=== PATIENT | female | born 1940 | race Caucasian/White ===

== ENCOUNTER → 2017-05-19 | Outpatient (REF) | payer MEDICARE ==
[2017-05-19 15:22] LABS: MICROSCOPIC INDICATED? MAN YES (NO)
[2017-05-19 15:49] LABS: BACTERIA, URINE NONE SEEN; HYALINE CAST, URINE NONE SEEN /lpf (0-1); RBC, URINE NONE SEEN /hpf (0-3); SQUAMOUS EPITHELIAL CELL URINE SMALL AMOUNT /hpf (SMALL AMT); WBC, URINE NONE SEEN /hpf (0-3)
[2017-05-19 15:50] LABS: MICROSCOPIC EXAM PERFORMED
== END ==
LOC: M SMT 13:11
PROVIDERS: ATTEND Nurse Practitioner Women's Health
DX: R39.89 Other symptoms and signs involving the genitourinary system (principal)
CPT/HCPCS: 81000; 87086; G0463

== ENCOUNTER → 2018-02-22 | Outpatient (REF) | payer MEDICARE ==
[2018-02-22 13:23] LABS: APPEARANCE, URINE CLEAR (CLEAR); BACTERIA, URINE AUTO NEGATIVE (NEGATIVE); BILIRUBIN, URINE AUTO NEGATIVE (NEGATIVE); BLOOD, URINE BLOOD NEGATIVE (NEGATIVE); COLOR, URINE YELLOW (YELLOW); GLUCOSE, URINE (UA) AUTO NEGATIVE (NEGATIVE); KETONE, URINE AUTO NEGATIVE (NEGATIVE); LEUKOCYTE ESTERASE, URINE AUTO 1+ (NEGATIVE); MUCUS, URINE SMALL (NEGATIVE); NITRITE, URINE AUTO NEGATIVE (NEGATIVE); PROTEIN, URINE AUTO NEGATIVE (NEGATIVE); RBC, URINE AUTO 0 /HPF (0-3); SPECIFIC GRAVITY URINE AUTO 1.013 (1.002-1.035); SQUAMOUS EPITHELIAL CELL UR AU 1 /HPF (0-6); UROBILINOGEN, URINE AUTO 0.2 mg/dL (0.0-2.0); WBC, URINE AUTO 2 /HPF (0-3)
== END ==
LOC: M SMT 12:55
DX: R35.0 Frequency of micturition (principal)
CPT/HCPCS: 81001

== ENCOUNTER → 2018-03-31 | Outpatient (CLI) | payer MEDICARE ==
[2018-03-31 09:54] LABS: HEMATOCRIT 38.1 % (36.0-47.0); HEMOGLOBIN 12.8 g/dl (12.0-15.5); MEAN CORPUSCULAR HEMOGLOBIN 29.4 pg (27.0-33.0); MEAN CORPUSCULAR HGB CONC 33.6 g/dl (32.0-36.5); MEAN CORPUSCULAR VOLUME 87.6 fl (80.0-96.0); PLATELET COUNT, AUTOMATED 194 10^3/uL (150-450); RED BLOOD COUNT 4.35 10^6/uL (4.00-5.40); RED CELL DISTRIBUTION WIDTH 13.2 % (11.5-14.5); WHITE BLOOD COUNT 5.8 10^3/uL (4.0-10.0)
[2018-03-31 10:05] LABS: INR 0.93; PROTHROMBIN TIME 12.5 SECONDS (12.1-14.4)
[2018-03-31 10:16] LABS: ERYTHROCYTE SEDIMENTATION RATE 10 mm/hr (0-30)
[2018-03-31 10:20] LABS: ALBUMIN 3.6 GM/DL (3.2-5.2); ALBUMIN/GLOBULIN RATIO 1.16 (1.00-1.93); ALKALINE PHOSPHATASE 69 U/L (45-117); ALT/SGPT 20 U/L (12-78); ANION GAP 7 MEQ/L (8-16); AST/SGOT 15 U/L (7-37); BILIRUBIN,TOTAL 0.5 MG/DL (0.2-1.0); BLOOD UREA NITROGEN 15 MG/DL (7-18); CALCIUM LEVEL 9.4 MG/DL (8.8-10.2); CARBON DIOXIDE LEVEL 29 MEQ/L (21-32); CHLORIDE LEVEL 103 MEQ/L (98-107); CREATININE FOR GFR 0.78 MG/DL (0.55-1.30); GLOMERULAR FILTRATION RATE > 60.0 (>32); GLUCOSE, FASTING 91 MG/DL (70-100); SODIUM LEVEL 139 MEQ/L (136-145); TOTAL PROTEIN 6.7 GM/DL (6.4-8.2)
== END ==
LOC: M LAB 09:12
DX: Z01.818 Encounter for other preprocedural examination (principal); M16.11 Unilateral primary osteoarthritis, right hip; J45.909 Unspecified asthma, uncomplicated; J44.9 Chronic obstructive pulmonary disease, unspecified; I10 Essential (primary) hypertension; E78.00 Pure hypercholesterolemia, unspecified; K21.9 Gastro-esophageal reflux disease without esophagitis; Z86.73 Personal history of transient ischemic attack (TIA), and cerebral infarction without residual deficits; R94.31 Abnormal electrocardiogram [ECG] [EKG]
CPT/HCPCS: 71046

== ENCOUNTER 2018-04-14 05:39 | Inpatient (IN) | payer MEDICARE ==
[2018-04-14] MEDS ORDERED: ONDANSETRON 4MG/2ML VIAL (J2405) As Ordered (07:15)
[2018-04-14] MEDS ORDERED: fentaNYL 100 MCG/2 ML INJECTION (J3010) As Ordered (07:15)
[2018-04-14] MEDS: CLINDAMYCIN 900 MG in APPROPRIATE DILUENT 1 EA IV ×2 (08:00→15:42)
[2018-04-14] MEDS ORDERED: LIDOCAINE 2% INJ 100 MG/5 ML SDV (FOR ANES.) As Ordered (08:05)
[2018-04-14] MEDS ORDERED: PROPOFOL 200 MG/20 ML VIAL As Ordered ×5 (08:05→08:42)
[2018-04-14] MEDS: CLINDAMYCIN INJ 900MG/6ML VIAL As Ordered (08:34)
[2018-04-14] MEDS: EPINEPHrine INJ 1 MG/ML 1ML AMP As Ordered (08:36)
[2018-04-14] MEDS: TRANEXAMIC ACID 100 MG/ML 10ML VIAL As Ordered (08:37)
[2018-04-14] MEDS ORDERED: PHENYLephrine HCL 500 MCG/5 ML (100MCG/ML) SYRINGE (J2370) As Ordered (08:43)
[2018-04-14] MEDS ORDERED: ePHEDrine SULFATE 25 MG/5 ML(5MG/ML) SYRINGE As Ordered (08:43)
[2018-04-14] MEDS ORDERED: MORPHINE 1MG/ML IN 0.9% NACL 100ML IV BAG As Ordered (09:13)
[2018-04-14] MEDS ORDERED: HYDROMORPHONE HCL 0.5 MG/ 0.5 ML SYRINGE (J1170 PER 1) IV (09:45)
[2018-04-14] MEDS ORDERED: PERCOCET 5MG/325MG TAB PO (09:45)
[2018-04-14] MEDS ORDERED: ONDANSETRON 4MG/2ML VIAL (J2405) IV ×2 (09:45→10:45)
[2018-04-14] MEDS ORDERED: FLEET ENEMA PR (09:45)
[2018-04-14] MEDS ORDERED: ACETAMINOPHEN TAB 650MG DOSE (2X325MG) PO (09:45)
[2018-04-14] MEDS ORDERED: fentaNYL 100 MCG/2 ML INJECTION (J3010) IV (09:45)
[2018-04-14] MEDS ORDERED: NALBUPHINE HCL 10 MG/ML AMP (J2300) IV (10:45)
[2018-04-14] MEDS ORDERED: diphenhydrAMINE INJ 50MG/ML VIAL (J1200) IV (10:45)
[2018-04-14] MEDS ORDERED: EPIDURAL/PCA KEYS XX (10:45)
[2018-04-14] MEDS ORDERED: NALOXONE INJ 0.4 MG/1 ML VIAL (J2310) IV (10:45)
[2018-04-14] MEDS ORDERED: MORPHINE 1MG/ML IN 0.9% NACL 100ML IV BAG IV (10:45)
[2018-04-14] MEDS: LR 1,000 ML IV ×2 (13:58→21:08)
[2018-04-14] MEDS ORDERED: ALBUTEROL 90 MCG/ACT 8GM HFA INHALER INH (15:15)
[2018-04-14] MEDS ORDERED: ALBUTEROL SULFATE 2.5 MG/0.5 ML INH NEB SOLN NEB (15:30)
[2018-04-14] MEDS: hydroCHLOROthiazide 25 MG TAB PO (15:42)
[2018-04-14] MEDS: ENALAPRIL MALEATE 10 MG TAB PO ×2 (15:44→15:48)
[2018-04-14] MEDS: PRAVASTATIN 20 MG TAB PO (15:45)
[2018-04-14] MEDS: ONDANSETRON 4MG/2ML VIAL (J2405) IV (17:43)
[2018-04-14] MEDS: PROPRANOLOL 20 MG TAB PO (21:08)
[2018-04-15] MEDS: CLINDAMYCIN 900 MG in APPROPRIATE DILUENT 1 EA IV (00:54)
[2018-04-15] MEDS: LEVOTHYROXINE 88MCG TABLET (0.088 MG) PO (05:49)
[2018-04-15] MEDS ORDERED: PERCOCET 5MG/325MG TAB PO (06:30)
[2018-04-15 06:35] LABS: HEMATOCRIT 29.3 % (36.0-47.0); HEMOGLOBIN 9.7 g/dl (12.0-15.5); MEAN CORPUSCULAR HEMOGLOBIN 29.6 pg (27.0-33.0); MEAN CORPUSCULAR HGB CONC 33.1 g/dl (32.0-36.5); MEAN CORPUSCULAR VOLUME 89.3 fl (80.0-96.0); PLATELET COUNT, AUTOMATED 144 10^3/uL (150-450); RED BLOOD COUNT 3.28 10^6/uL (4.00-5.40); RED CELL DISTRIBUTION WIDTH 13.2 % (11.5-14.5); WHITE BLOOD COUNT 8.5 10^3/uL (4.0-10.0)
[2018-04-15 06:54] LABS: ANION GAP 7 MEQ/L (8-16); BLOOD UREA NITROGEN 15 MG/DL (7-18); CALCIUM LEVEL 8.2 MG/DL (8.8-10.2); CARBON DIOXIDE LEVEL 28 MEQ/L (21-32); CHLORIDE LEVEL 99 MEQ/L (98-107); CREATININE FOR GFR 0.81 MG/DL (0.55-1.30); GLOMERULAR FILTRATION RATE > 60.0 (>32); GLUCOSE, FASTING 138 MG/DL (70-100); MAGNESIUM LEVEL 1.3 MG/DL (1.8-2.4); SODIUM LEVEL 134 MEQ/L (136-145)
[2018-04-15] MEDS: FLUTICASONE HFA 220 MCG 12 GM INHALER (FLOVENT) INH (07:48)
[2018-04-15] MEDS: ONDANSETRON 4 MG TAB (S0181) PO (07:55)
[2018-04-15] MEDS ORDERED: diphenhydrAMINE 25 MG CAP PO (08:45)
[2018-04-15] MEDS: PRAVASTATIN 20 MG TAB PO (09:32)
[2018-04-15] MEDS: MIRALAX *UNIT DOSE* 17GM PACKET PO (09:32)
[2018-04-15] MEDS: GABAPENTIN 300 MG CAP PO (09:32)
[2018-04-15] MEDS: MOM 30ML SUSPENSION UDC PO (09:32)
[2018-04-15] MEDS: hydroCHLOROthiazide 25 MG TAB PO (09:33)
[2018-04-15] MEDS: RIVAROXABAN 10 MG TAB (XARELTO) PO (09:33)
[2018-04-15] MEDS: ENALAPRIL MALEATE 10 MG TAB PO (09:33)
[2018-04-15] MEDS: SENOKOT S TAB PO ×2 (09:33→20:04)
[2018-04-15] MEDS: ASPIRIN 81 MG ENTERIC TAB PO (09:33)
[2018-04-15] MEDS: PERCOCET 5MG/325MG TAB PO ×2 (10:50→17:11)
[2018-04-15] MEDS: MAGNESIUM OXIDE 400 MG TAB (MAG-OX) PO ×2 (17:09→20:04)
[2018-04-15] MEDS: MAG SULF 1GM/100ML (MAG RUN) 1 GM in APPROPRIATE DILUENT 1 EA IV (17:41)
[2018-04-15] MEDS: PROPRANOLOL 20 MG TAB PO (20:19)
[2018-04-16 05:35] LABS: HEMATOCRIT 26.6 % (36.0-47.0); MEAN CORPUSCULAR HEMOGLOBIN 29.5 pg (27.0-33.0); MEAN CORPUSCULAR HGB CONC 33.8 g/dl (32.0-36.5); MEAN CORPUSCULAR VOLUME 87.2 fl (80.0-96.0); PLATELET COUNT, AUTOMATED 118 10^3/uL (150-450); RED BLOOD COUNT 3.05 10^6/uL (4.00-5.40); RED CELL DISTRIBUTION WIDTH 13.2 % (11.5-14.5); WHITE BLOOD COUNT 9.8 10^3/uL (4.0-10.0)
[2018-04-16 05:58] LABS: ANION GAP 5 MEQ/L (8-16); BLOOD UREA NITROGEN 13 MG/DL (7-18); CARBON DIOXIDE LEVEL 30 MEQ/L (21-32); CHLORIDE LEVEL 97 MEQ/L (98-107); CREATININE FOR GFR 0.83 MG/DL (0.55-1.30); GLOMERULAR FILTRATION RATE > 60.0 (>32); GLUCOSE, FASTING 133 MG/DL (70-100); SODIUM LEVEL 132 MEQ/L (136-145)
[2018-04-16] MEDS: LEVOTHYROXINE 88MCG TABLET (0.088 MG) PO (06:15)
[2018-04-16] MEDS: PERCOCET 5MG/325MG TAB PO ×2 (07:39→12:59)
[2018-04-16] MEDS: MIRALAX *UNIT DOSE* 17GM PACKET PO (07:40)
[2018-04-16] MEDS: SENOKOT S TAB PO (07:41)
[2018-04-16] MEDS: GABAPENTIN 300 MG CAP PO (07:41)
[2018-04-16] MEDS: MOM 30ML SUSPENSION UDC PO (07:41)
[2018-04-16] MEDS: ASPIRIN 81 MG ENTERIC TAB PO (07:42)
[2018-04-16] MEDS: RIVAROXABAN 10 MG TAB (XARELTO) PO (07:42)
[2018-04-16] MEDS: PRAVASTATIN 20 MG TAB PO (07:42)
[2018-04-16] MEDS: MAGNESIUM OXIDE 400 MG TAB (MAG-OX) PO (07:42)
[2018-04-16] MEDS: ENALAPRIL MALEATE 10 MG TAB PO (07:43)
[2018-04-16] MEDS: hydroCHLOROthiazide 25 MG TAB PO (07:43)
[2018-04-16] MEDS: FLUTICASONE HFA 220 MCG 12 GM INHALER (FLOVENT) INH (08:02)
== END 2018-04-16 13:10 | disposition home or self-care (01) | DRG 470 ==
LOC: M OR 05:39 → M MS5PR 10:25
PROC: 0SR902Z Replacement of Right Hip Joint with Metal on Polyethylene Synthetic Substitute, Open Approach (ICD-10-PCS; principal; 2018-04-14 07:30)
DX: M16.11 Unilateral primary osteoarthritis, right hip (principal); J44.9 Chronic obstructive pulmonary disease, unspecified; R26.89 Other abnormalities of gait and mobility; E78.00 Pure hypercholesterolemia, unspecified; I69.398 Other sequelae of cerebral infarction; R20.0 Anesthesia of skin; I10 Essential (primary) hypertension; E03.9 Hypothyroidism, unspecified; E83.42 Hypomagnesemia; Z96.653 Presence of artificial knee joint, bilateral; Z96.619 Presence of unspecified artificial shoulder joint; Z87.891 Personal history of nicotine dependence; Z87.440 Personal history of urinary (tract) infections; Z88.0 Allergy status to penicillin; Z88.1 Allergy status to other antibiotic agents; Z88.2 Allergy status to sulfonamides; Z79.82 Long term (current) use of aspirin; Z79.899 Other long term (current) drug therapy

== ENCOUNTER 2018-05-11 20:42 | Emergency (ER) | payer MEDICARE ==
[2018-05-11] MEDS ORDERED: PERCOCET 5MG/325MG TAB PO (21:30)
[2018-05-11] MEDS: PROPOFOL 200 MG/20 ML VIAL IV (21:45)
[2018-05-11] MEDS: NS 1,000 ML IV (22:10)
[2018-05-11] MEDS: ONDANSETRON 4MG/2ML VIAL (J2405) IV (22:10)
[2018-05-11] MEDS: MORPHINE 4 MG/ML 1ML VIAL/SYRINGE (J2270) IV (22:11)
[2018-05-11] MEDS: OXYCODONE/APAP 5MG/325MG(BULK FOR ED) 1 TABLET PO (23:56)
== END 2018-05-12 00:02 | disposition home or self-care (01) ==
LOC: M ED 05-12 00:02
DX: S73.001A Unspecified subluxation of right hip, initial encounter (principal); X58.XXXA Exposure to other specified factors, initial encounter; Y92.89 Other specified places as the place of occurrence of the external cause; Z96.641 Presence of right artificial hip joint; I10 Essential (primary) hypertension; I25.10 Atherosclerotic heart disease of native coronary artery without angina pectoris; E78.5 Hyperlipidemia, unspecified; E07.9 Disorder of thyroid, unspecified; M19.90 Unspecified osteoarthritis, unspecified site; Z79.899 Other long term (current) drug therapy; Z79.82 Long term (current) use of aspirin; Z79.890 Hormone replacement therapy; Z79.01 Long term (current) use of anticoagulants; Z88.0 Allergy status to penicillin; Z88.1 Allergy status to other antibiotic agents; Z88.2 Allergy status to sulfonamides; Z88.8 Allergy status to other drugs, medicaments and biological substances
CPT/HCPCS: J2270

== ENCOUNTER → 2022-02-19 | Outpatient (REF) | payer MEDICARE ==
[~2022-02-19] MED LIST: ASPI81TA26 PO; CELE1CAP4 PO; ENAL-36 PO; FLUT22IN INH; GABA600T4 PO; HYDR-3490 PO; LEVO88TA3 PO; MAGN400T35 PO; PERC5TAB12 PO; PRAV40TA2 PO; PROP20TA72 PO; PROV108A INH; TRAM50TA2 PO; XARE10TA PO
[2022-02-19 17:56] LABS: APPEARANCE, URINE CLEAR (CLEAR); BACTERIA, URINE AUTO NEGATIVE (NEGATIVE); BILIRUBIN, URINE AUTO NEGATIVE (NEGATIVE); BLOOD, URINE BLOOD NEGATIVE (NEGATIVE); COLOR, URINE COLORLESS (YELLOW); GLUCOSE, URINE (UA) AUTO NEGATIVE (NEGATIVE); KETONE, URINE AUTO NEGATIVE (NEGATIVE); LEUKOCYTE ESTERASE, URINE AUTO NEGATIVE (NEGATIVE); NITRITE, URINE AUTO NEGATIVE (NEGATIVE); PROTEIN, URINE AUTO NEGATIVE (NEGATIVE); RBC, URINE AUTO 0 /HPF (0-3); SPECIFIC GRAVITY URINE AUTO 1.004 (1.002-1.035); SQUAMOUS EPITHELIAL CELL UR AU 0 /HPF (0-6); UROBILINOGEN, URINE AUTO 0.2 mg/dL (0.0-2.0); WBC, URINE AUTO 0 /HPF (0-3)
== END ==
LOC: M SMT 17:01
PROVIDERS: ATTEND Urology
DX: Q64.31 Congenital bladder neck obstruction (principal); Z79.899 Other long term (current) drug therapy